=== PATIENT | female | born 1990 | race Hispanic/Latino ===

== ENCOUNTER 2022-03-20 03:26 | Emergency (ER) | payer OTHER ==
[2022-03-20] MEDS ORDERED: methylPREDNISolone Sod Succ/PF 125 MG/2 ML VIAL ONE (03:49)
== END 2022-03-20 04:06 | disposition home or self-care (01) ==
LOC: NAV ERS 03:26
DX: L50.9 Urticaria, unspecified (principal); F17.210 Nicotine dependence, cigarettes, uncomplicated
CPT/HCPCS: 96372; 99282; J2930

== ENCOUNTER 2022-11-12 13:32 | Emergency (ER) | payer OTHER, SELFPAY ==
[2022-11-12] MEDS ORDERED: Ibuprofen 200 MG TAB ONE (14:00)
[2022-11-12 14:22] LABS: Bilirubin Negative (Negative); Blood, Urine Trace (Negative); Clarity Clear (Clear); Glucose, Urine (Dipstick) Negative (Negative); Ketone, Urine Negative (Negative); Leukocyte Negative (Negative); Nitrite Negative (Negative); Protein, Urine (Dipstick) Negative (Neg-Trace); Specific Gravity, Urine 1.025 (1.005-1.030); Urobilinogen 0.2 mg/dL (Less than 2)
[2022-11-12 14:24] LABS: CAUTI Indications for Culture Fever or rigors
[2022-11-12 14:25] LABS: Bacteria/HPF 3+ HPF (None Seen); RBC/HPF 0-3 HPF (0-3); Squamous Epithelial 0-3 HPF (0-3); WBC/HPF 0-3 HPF (0-3)
[2022-11-12 14:26] LABS: Urine Culture Reflex No No
== END 2022-11-12 14:50 | disposition home or self-care (01) ==
LOC: NAV ERS 13:32
DX: U07.1 COVID-19 (principal); R10.9 Unspecified abdominal pain; F17.210 Nicotine dependence, cigarettes, uncomplicated
CPT/HCPCS: 81001; 87635; 99283

== ENCOUNTER 2023-01-24 14:34 | Emergency (ER) | payer SELFPAY | END 2023-01-24 15:30 | disposition home or self-care (01) | LOC: NAV ERS 14:34 | DX: J02.9 Acute pharyngitis, unspecified (principal); H69.93 Unspecified Eustachian tube disorder, bilateral; F17.210 Nicotine dependence, cigarettes, uncomplicated | CPT/HCPCS: 99282 ==

== ENCOUNTER 2023-02-10 23:39 | Emergency (ER) | payer SELFPAY ==
[2023-02-11] MEDS ORDERED: Ketorolac Tromethamine 30 MG/ML VIAL ONE (00:44)
[2023-02-11] MEDS ORDERED: Dexamethasone 4 MG TAB ONE (00:45)
[2023-02-11] MEDS ORDERED: Dexamethasone 1 MG TAB ONE (00:45)
== END 2023-02-11 01:29 | disposition home or self-care (01) ==
LOC: NAV ERS 23:39
DX: B08.4 Enteroviral vesicular stomatitis with exanthem (principal); F17.210 Nicotine dependence, cigarettes, uncomplicated
CPT/HCPCS: 96372; 99282; J1885; J8540

== ENCOUNTER 2025-02-20 16:26 | Emergency (ER) | payer SELFPAY ==
[2025-02-20] MEDS ORDERED: Clindamycin 150 MG CAP ONE (18:49)
[2025-02-20] MEDS ORDERED: Ibuprofen 800 MG TAB ONE (18:49)
== END 2025-02-20 18:55 | disposition home or self-care (01) ==
LOC: NAV ERS 16:26
DX: K04.7 Periapical abscess without sinus (principal); K02.9 Dental caries, unspecified; F17.210 Nicotine dependence, cigarettes, uncomplicated; F17.290 Nicotine dependence, other tobacco product, uncomplicated